=== PATIENT | male | born 1945 | race African-American/Black ===

== ENCOUNTER 2017-02-24 19:18 | Emergency (ER) | payer MEDICARE ==
[~2017-02-24] VITALS: Ht 172.7 cm; Wt 74.4 kg
[2017-02-24] MEDS ORDERED: 0.9 % SODIUM CHLORIDE 10 ML DISP.SYRIN. IV PRN (19:45)
--- NOTE | 2017-02-24 19:55 | PHYS DOC ---
Past History Past Medical History: CVA, Hypertension Adult General Chief Complaint Chief Complaint: HYPERTENSION HPI HPI This pleasant 71-year-old male visiting from [place] family members presents with hypertension is poorly controlled. He has a history of hypertension for which she supposed be lisinopril but admits he been noncompliant with medications. He' s had a history of hypertension and CVA in the past with significant left-sided deficits and has not changed. He is noted that his blood pressure by machine as been elevated greater than 180s at one episode of dizziness earlier today he is concerned about. He is presently symptom free with no chest pain, no shortness of breath, no change in vision, change in dysarthria or aphasia, no increased weakness in his right extremity. Patient denies any other symptoms complaints or concerns. he also denies any headache sore throat, nausea, vomiting, diarrhea or other systemic complaint. Review of Systems Review of Systems Constitutional: Denies fever or chills [] Eyes: Denies change in visual acuity, redness, or eye pain [] HENT: Denies nasal congestion or sore throat [] Respiratory: Denies cough or shortness of breath [] Cardiovascular: No additional information not addressed in HPI [] GI: Denies abdominal pain, nausea, vomiting, bloody stools or diarrhea [] : Denies dysuria or hematuria [] Musculoskeletal: Denies back pain or joint pain [] Integument: Denies rash or skin lesions [] Neurologic: Denies headache, focal weakness or sensory changes he describes only mild dizziness that is now resolved. Endocrine: Denies polyuria or polydipsia [] Current Medications Current Medications Current Medications Medications (Trade) Dose Ordered Sig/[facility] Start Time Stop Time Status Last Admin Dose Admin Aspirin (Children'S Aspirin) 324 mg 1X ONCE 02/24/17 19:45 02/24/17 19:46 UNV Sodium Chloride (Normal Saline Flush) 10 ml QSHIFT PRN 02/24/17 19:45 UNV Physical Exam Physical Exam Hypertension is noted at 181/121. Constitutional: Well developed, well nourished, no acute distress, non-toxic appearance. [] HENT: Normocephalic, atraumatic, bilateral external ears normal, oropharynx moist, no oral exudates, nose normal. [] Eyes: PERRLA, EOMI, conjunctiva normal, no discharge. [] Neck: Normal range of motion, no tenderness, supple, no stridor. [] Cardiovascular:Heart rate regular rhythm, no murmur [] Lungs & Thorax: Bilateral breath sounds clear to auscultation [] Abdomen: Bowel sounds normal, soft, no tenderness, no masses, no pulsatile masses. [] Skin: Warm, dry, no erythema, no rash. [] Back: No tenderness, no CVA tenderness. [] Extremities: No tenderness, no cyanosis, no clubbing, patient is flaccid paralysis of the left upper and lower extremity. 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 [] EKG EKG [] EKG timed 7:52 PM 02/24/2017 demonstrated normal sinus rhythm left axial deviation with no ST segment or T-wave changes consistent with ischemia. Read by Dr. Grullon Radiology/Procedures Radiology/Procedures [] IMAGING REPORT Signed PATIENT: RAFFAELE ESTEVES ACCOUNT: [id number] : 1945 LOCATION: ER AGE: 71 SEX: M EXAM STATUS: PRE ER ORD. PHYSICIAN: RAFFAELE GRULLON MD REASON: htn PROCEDURE: CT HEAD WO CONTRAST Indication: Hypertension and headache. Patient has a prior history of stroke. Axial imaging through the brain was performed without contrast. One or more of the following individualized dose reduction techniques were utilized for this examination: 1. Automated exposure control 2. Adjustment of the mA and/or kV according to patient size 3. Use of iterative reconstruction technique No prior studies are available for comparison. There is a large region of encephalomalacia in the right middle cerebral artery territory consistent with prior infarct. There is mild compensatory enlargement to the right lateral ventricle. No sulcal effacement is identified. There is no midline shift. No acute intra-axial or extra-axial hemorrhage is seen. The cisterns are patent. The visualized paranasal sinuses are clear. IMPRESSION: Chronic changes, as described. No acute intracranial process is detected. Electronically signed by: Keaton Cole MD (02/24/2017 9:28 PM) [facility] DICTATED AND SIGNED BY: KEATON COLE MD DATE: 02/24/172126 CC: RAFFAELE GRULLON MD ~ Two-view chest x-ray pa and lateral demonstrates no cardiomegaly, no widened mediastinum, no evidence of pneumothorax, no evidence of pleural effusion. Read by Dr. Grullon. Time of EKG was at 9:16 PM 02/24/2017. Course & Med Decision Making Course & Med Decision Making Pertinent Labs and Imaging studies reviewed. (See chart for details) patient presents with hypertension but no obvious signs of end organ damage. We'll complete a CT of the head given his prior CVA dementia's note internal cranial hemorrhage or interval change in his prior stroke. He will also have a EKG, chest x-ray, troponin, urinalysis, kidney evaluation was CMP. His blood pressures 183/121. Heart rate of 94 [] At this point patient's CMP demonstrates no signs of renal insufficiency, troponin is negative, EKG shows no sign of cardiac strain, CT of the head devastate old encephalomalacia from a prior infarct but nothing new. Patient's neuro exam is unchanged from prior. Patient's blood pressures range and 180/ 110. Patient is asymptomatic at this time. I would advise that he actually uses medications as prescribed and follow-up with his primary care doctor. Impression: Hypertension poorly controlled, medication noncompliance Disposition: PCP follow-up in 4872 hours for readjustment of his medications. Dragon Disclaimer Dragon Disclaimer This chart was dictated in whole or in part using Voice Recognition software in a busy, high-work load, and often noisy Emergency Department environment. It may contain unintended and wholly unrecognized errors or omissions. Departure Departure: Impression: Primary Impression: Hypertension Additional Impression: Noncompliance w/medication treatment due to intermit use of medication Disposition: HOME, SELF-CARE Condition: STABLE Patient Instructions: Hypertension Additional Instructions: Please use medications as prescribed as help treat your symptoms and for long- term secondary sequelae from occurring. Return for any question concerns or might have Problem Qualifiers RAFFAELE GRULLON MD Feb 24, 2017 19:54
[2017-02-24] MEDS ORDERED: IV NORMAL SALINE 1,000ML 1,000 ML ONE (20:02)
[2017-02-24] MEDS ORDERED: ASPIRIN 81 MG TAB.CHEW ONE (20:02)
[2017-02-24] MEDS ORDERED: IV NORMAL SALINE 1,000ML 1,000 ML IV SCH (20:10)
[2017-02-24] MEDS ORDERED: ASPIRIN 81 MG TAB.CHEW PO ONE (20:10)
[2017-02-24 20:14] LABS: BASO % 1 % (0-3); EOS # 0.1 x10^3/uL (0.0-0.7); EOS % 2 % (0-3); HEMATOCRIT 45.1 % (39.0-53.0); HEMOGLOBIN 15.1 g/dL (13.0-17.5); LYMPH # 1.8 x10^3/uL (1.0-4.8); LYMPH % 35 % (24-48); MEAN CORPUSCULAR HEMOGLOBIN 30 pg (25-35); MEAN CORPUSCULAR HGB CONC 34 g/dL (31-37); MEAN CORPUSCULAR VOLUME 90 fL (79-100); MONO # 0.5 x10^3/uL (0.0-1.1); MONO % 9 % (0-9); NEUT # 2.8 x10^3uL (1.8-7.7); NEUT % 54 % (31-73); PLATELET COUNT 194 x10^3/uL (140-400); RED BLOOD COUNT 5.01 x10^6/uL (4.30-5.70); RED CELL DISTRIBUTION WIDTH 13.8 % (11.5-14.5); WHITE BLOOD COUNT 5.2 x10^3/uL (4.0-11.0)
[2017-02-24 20:28] LABS: BILIRUBIN,URINE NEG (NEG); CLARITY,URINE CLEAR; COLOR,URINE YELLOW; GLUCOSE,URINE NEG (NEG)
[2017-02-24 20:29] LABS: BACTERIA,URINE FEW /HPF (0-FEW); NITRITE,URINE NEG (NEG); RBC,URINE RARE /HPF (0-2); SQUAMOUS EPITHELIAL CELL,UR OCC /LPF; UROBILINOGEN,URINE 1 mg/dL (0.2 mg/dL); WBC,URINE RARE /HPF (0-4)
[2017-02-24 20:39] LABS: ALBUMIN 3.5 g/dL (3.4-5.0); ALBUMIN/GLOBULIN RATIO 0.9 (1.0-1.7); CALCIUM 8.5 mg/dL (8.5-10.1); CREATININE 0.8 mg/dL (0.7-1.3); GFR 95.6; POTASSIUM 3.6 mmol/L (3.5-5.1); TOTAL BILIRUBIN 0.3 mg/dL (0.2-1.0); TOTAL PROTEIN 7.4 g/dL (6.4-8.2)
--- NOTE | 2017-02-24 21:31 | RAD ---
Indication: Hypertension and headache. Patient has a prior history of stroke. Axial imaging through the brain was performed without contrast. One or more of the following individualized dose reduction techniques were utilized for this examination: 1. Automated exposure control 2. Adjustment of the mA and/or kV according to patient size 3. Use of iterative reconstruction technique No prior studies are available for comparison. There is a large region of encephalomalacia in the right middle cerebral artery territory consistent with prior infarct. There is mild compensatory enlargement to the right lateral ventricle. No sulcal effacement is identified. There is no midline shift. No acute intra-axial or extra-axial hemorrhage is seen. The cisterns are patent. The visualized paranasal sinuses are clear. IMPRESSION: Chronic changes, as described. No acute intracranial process is detected. Electronically signed by: Keaton Cole MD (02/24/2017 9:28 PM) [facility]
[2017-02-24 21:45] VITALS: BP 174/111
--- NOTE | 2017-02-25 05:20 | EKG ---
[address] [address] Test Date: 2017-02-24 Test Time: 19:52:29 Pat Name: RAFFAELE ESTEVES Department: Room: Gender: M [employer] Supervisor: LILI : 1945 Requested By: RAFFAELE GRULLON Order Number: [id number] Reading MD: Measurements Intervals [place] Rate: 79 P: 32 MD: 212 QRS: -55 QRSD: 122 T: 46 QT: 354 QTc: 407 Interpretive Statements SINUS RHYTHM ABNORMAL LEFT AXIS DEVIATION NON SPECIFIC INTRAVENTRICULAR DELAY LEFT VENTRICULAR HYPERTROPHY NON SPECIFIC ST-T ABNORMALITY (ELEVATION) RI6.01 Unconfirmed report No previous ECG available for comparison
--- NOTE | 2017-02-25 07:54 | RAD ---
Chest, 2 views, 02/24/2017: History: Hypertension The heart size and pulmonary vascularity are normal. There is minimal aortic calcific plaquing. No pulmonary infiltrates are seen. There is no evidence of pleural fluid. There is mild spurring in the spine. IMPRESSION: No acute cardiopulmonary abnormality is detected.
== END 2017-02-24 21:45 | disposition home or self-care (01) ==
LOC: ER 19:18
DX: I10 Essential (primary) hypertension (principal); Z91.14 Patient's other noncompliance with medication regimen; Z86.73 Personal history of transient ischemic attack (TIA), and cerebral infarction without residual deficits
CPT/HCPCS: 36415; 70450; 71020; 80053; 81001; 83880; 84484; 85027; 93005; 96360; 99285-25; J7030